=== PATIENT | male | born 1980 | race Caucasian/White ===

== ENCOUNTER 2018-10-02 08:29 | Outpatient (CLI) | payer MEDICAID, SELFPAY | END 2018-10-02 08:49 | PROVIDERS: PCP Neuromusculoskeletal Medicine & OMM; Visit Provider Orthopaedic Surgery | DX: Z01.818 Encounter for other preprocedural examination (principal) ==

== ENCOUNTER 2018-10-07 12:54 | Day surgery (SDC) | payer MEDICAID, SELFPAY ==
[2018-10-07] VITALS (7 sets, daily range): BP systolic 117–158; BP diastolic 63–97; PULSE 62–88; RESP 12–16; TEMP 35.7–37.1; O2SAT 93–97
[2018-10-07] MEDS: Lactated Ringers 1,000 ML 80 ML IV (14:12)
[2018-10-07] MEDS: ceFAZolin 2 GM/50 ML BAG IVPB (15:24)
--- NOTE | 2018-10-07 16:31 | W.PM.DSUDISC ---
Discharge Plan Disposition Patient Disposition: HOME Condition: Good Discharge Details Reason For Visit: Arthroscopy L knee Attending Provider: Cornell Santana Primary Care Provider: Melvin Rivas [place] Meds and New Rx's Prescriptions: New oxycodone-acetaminophen 5-325 mg tablet 1 tab PO Q4H PRN (Reason: pain) Qty: 14 RF: 0 Continued aspirin 81 mg tablet,delayed release (DR/EC) 81 mg PO DAILY RF: 0 prednisone 5 mg tablet 5 mg PO DAILY RF: 0 albuterol sulfate 8.5 GM HFA aerosol inhaler 2 inh Inhalation Q4H PRN PRNRF: 0 ibuprofen 800 MG tablet 800 mg PO TID Qty: 30 RF: 0 multivitamin Tablet,Chewable 1 tab PO DAILY RF: 0 sildenafil (antihypertensive) 20 mg Tablet 10 mg PO DAILY RF: 0 Discharge Instructions Additional Instructions: Elevate L leg when sitting. Apply cryocuff to L knee continuously overnite tonite. Tomorrow, start to use 4 times/day for 1 hour each time. Keep dressings dry and in place for 48 hours. After 48 hours, you can remove the dressings and shower and get incisions wet. Leave incisions uncovered when they are dry and sealed. Outpatient physical therapy on Fri or Mon for L knee rehab post-arthroscopy/patellar chondroplasty. Follow up with in 2 weeks. Take ibuprofen 800 mg, 3 times/day for next 2 weeks to decrease inflammation and pain in L knee. Take oxycodone for breakthru pain,if needed. Referrals: Cornell Santana MD [ [facility] STAFF PHYSICIAN] - (f/u in 2 weeks.) Equipment/Supplies: Partial Weight Bearing Crutches Activity:: Activity as Tolerated Remove Dressings/Wound Care:: 48 hours Shower/Bathe:: 48 hours Diet:: As Tolerated Discharge Orders Discharge Orders: Discharge Order (Routine); Ordered 10/07/18 Ordered By: Cornell Santana DS: Diagnosis Discharge Diagnosis (1) Torn ACL (anterior cruciate ligament): Status: Acute
[2018-10-07] MEDS: fentaNYL 100 MCG/2 ML VIAL IVP ×2 (17:15→17:20)
[2018-10-07] MEDS: oxyCODONE 5 mg/Acetaminophen 325 mg TAB 1 TAB PO (17:42)
--- NOTE | 2018-10-09 16:39 | ROE_ITS ---
DATE OF PROCEDURE: October 07, 2018 PREOPERATIVE DIAGNOSIS: Internal derangement, left knee. 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 PROCEDURE: Arthroscopy of the left knee with limited chondroplasty of the patella. ANESTHESIA: General. SURGEON: Cornell Santana M.D. INDICATIONS: This is a 37-year-old white male who gives a several year history of recurrent episodes of swelling and pseudo giving way of his left knee. He had had a previous arthroscopy with partial meniscectomy many, many years ago. He had done relatively well until three years ago. He has had no true giving way of his knee. He feels like it is getting worse and therefore arthroscopy was recomm ended to provide an accurate diagnosis as the basis for further treatment. The risks and complicatio ns of the procedure were explained to the patient in detail preoperatively. PROCEDURE: The patient was taken to the Operating Room on 10/07/18. He was placed supine on the oper ating table and a general anesthetic was administered. The left thigh was placed in the arthroscopic leg-cruz and the left knee was prepped and draped free in the usual sterile fashion. Arthroscopic portals were established. The left knee was inflated with normal saline solution using the [employer] opy pump and then routine arthroscopic examination proceeded. I utilized the previous arthroscopic p ortals for the procedure. Intraoperative photographs were obtained to document findings. Upon entering the medial compartment, he was found to have had a previous meniscectomy. The anterior one-third to one-half of the medial meniscus was intact. The posterior rim of the medial meniscus w as stable to probing under direct vision. 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 The medial femoral condyle looked normal. The intercondylar notch showed a previous old, chronic tear of the ACL. The PCL was intact. There w as some narrowing of the intercondylar notch due to the development of hypertrophic spurs. The later al compartment showed a normal lateral meniscus. The lateral meniscus was stable to probing under di rect vision. The articular surfaces in the lateral compartment were all preserved. The suprapatellar pouch was clear. Medial and lateral gutters were clear. The patella was tracking well, but the patient had evidence of Grade 2 chondromalacia involving a middle facet and medial face t of the patella. The trochlea articular cartilage was spared. Using the 90 degree high radio freq uency electrocautery wand, a limited chondroplasty was performed, excising all the loose articular ca rtilage from the undersurface of the patella. I then used the high radio frequency electrocautery wa nd around the margins of the patella to denervate the patella and hopefully decrease some of his post op pain. A limited synovectomy was then performed using the high radio frequency electrocautery wand to excise any hypertrophic synovium. At this point the knee was copiously irrigated with saline yissel ution using the arthroscopy pump until the outflow was clear. I then injected into the knee 20 cc's of 0.5% Marcaine with an epinephrine solution along with 4 mg of morphine. I infiltrated the arthros copy portals with 0.5% Marcaine with an epinephrine solution and then approximated the skin edges wit h interrupted #4-0 Nylon sutures. The wounds were dressed with Xeroform gauze, sterile gauze 4x4's, ABD pad and wrapped with 6-inch Elliot bandages for a light pressure dressing. The patient tolerated the procedure well, his anesthesia was reversed without complication and blood loss was minimal. He was discharged to the recovery room in good condition. The patient was discharged home from the Day Surgery Unit when fully recovered from his general anest hesia. He was given instructions to use crutches to walk, weightbearing as tolerated to the left leg . He is instructed to try to elevate his left knee on 1 to 2 pillows as much as possible for the nex t 48 hours postop. He may remove his dressings, shower and get his incisions wet after 48 hours. He can leave the incisions uncovered when they are dry and sealed. He is to use a Cryo Cuff to the lef t knee four times a day for an hour each time. He was given a prescription for inflammation of ibupr ofen 800 mg p.o. t.i.d. for ten days. He was given a prescription for pain of Oxycodone with APAP 5/ 325, one tablet every six hours, if needed. He will begin outpatient physical therapy on either , 10/09/18 or 10/21/18 for rehab of his left knee post-arthroscopic chondroplasty. He will f ollow-up in my office in two weeks.
== END 2018-10-07 18:27 | disposition home or self-care (01) ==
PROVIDERS: PCP Neuromusculoskeletal Medicine & OMM; Visit Provider Orthopaedic Surgery
PROC: (CPT 29870; principal; 2018-10-07 15:00)
DX: S83.512A Sprain of anterior cruciate ligament of left knee, initial encounter (principal); X58.XXXA Exposure to other specified factors, initial encounter; M22.42 Chondromalacia patellae, left knee; M17.12 Unilateral primary osteoarthritis, left knee
CPT/HCPCS: 29877; E0114; J0690; J1100; J1885; J2250; J2310; J2405; J3010

== ENCOUNTER 2020-10-12 01:46 | Outpatient (CLI) | payer MEDICAID, SELFPAY ==
--- NOTE | 2020-10-12 13:15 | DI.MRI_ITS ---
Exam(s) MR UPPER JOINT LT WO EXAM: MR UPPER JOINT LT WO CLINICAL HISTORY: LT SHOULDER PAIN, M25.512 TECHNIQUE: Multiplanar multisequence MRI of the shoulder was performed. COMPARISON: CR RIGHT SHOULDER COMPLETE from 02/19/2011 CR RIGHT SHOULDER COMPLETE from 01/01/2012 CR ABDOMEN FLAT PLATE from 07/12/2013 FINDINGS: MARROW:There is no evidence of fracture, Hill-Sachs deformity, nor ominous osseous lesions. ROTATOR CUFF MECHANISM: AC JOINT/ACROMIUM: There mild degenerative changes acromioclavicular joint. No prominent downgoing o steophytes. Mild impingement upon the supraspinatus noted. There is no evidence of os acromiale. Supraspinatus: There is a small focus of signal abnormality in the foot pad insertion just above the greater tuberosity consistent with partial thickness tearing. There is no full-thickness tear. No f luid in the overlying subacromial bursa and no retraction musculotendinous junction. There is no mus betzy atrophy. Infraspinatus: Intact. No evidence of tear nor muscle atrophy. Teres Minor: Intact. No evidence of tear nor muscle atrophy. Subscapularis/anterior cuff: Mild increased signal. No prominent tear, retraction, or muscle atrophy . BICEPS TENDON: Normal position in the intertubercular groove. No evidence of tear. Mild tenosynovitis LABRUM: No labral tear identified. No evidence of paralabral cyst. LABROLIGAMENTOUS/CAPSULAR COMPLEX: There is no evidence of avulsion of the anterior-inferior labrum, capsule, inferior glenohumeral liga ment complex nor disruption of the scapular periosteum to suggest the presence of a Bankart lesion. GLENOHUMERAL JOINT: No joint effusion nor obvious loose intra-articular bodies. No chondral defects. No osteophytes. No degenerative subarticular cysts. No evidence of capsular tear. The inferior gle nohumeral ligament is intact. QUADRILATERAL SPACE: No evidence of mass in the region of the axillary nerve and dorsal circumflex hu meral vessels. Visualized triceps muscle at this level appears unremarkable. IMPRESSION: 1. There is a small focus of signal abnormality in the supraspinatus tendon just above the greater tu berosity which traverses part of the thickness consistent with a small focal partial-thickness tear. There is no full-thickness tear. No retraction musculotendinous junction. No fluid in the subacrom ial bursa. No muscle atrophy. 2. Other muscles of the rotator cuff mechanism appear unremarkable. 3. There are no labral tears. 4. There is small amount of fluid in the biceps tendon sheath. This may indicate an element of mild tenosynovitis. DATA REPOSITORY:
== END 2020-10-12 02:06 ==
PROVIDERS: PCP Neuromusculoskeletal Medicine & OMM; Visit Provider Student in an Organized Health Care Education/Training Program
DX: M25.512 Pain in left shoulder (principal); M75.112 Incomplete rotator cuff tear or rupture of left shoulder, not specified as traumatic
CPT/HCPCS: 73221

== ENCOUNTER 2020-12-11 02:54 | Outpatient (CLI) | payer MEDICAID, SELFPAY ==
[2020-12-11 14:02] LABS: Source Nasal/Nares
[2020-12-12 16:11] LABS: COVID-19 PCR Negative (Negative)
== END 2020-12-11 02:55 | disposition home or self-care (01) ==
LOC: LBO 02:55
PROVIDERS: PCP Neuromusculoskeletal Medicine & OMM; Visit Provider Student in an Organized Health Care Education/Training Program
DX: Z20.822 Contact with and (suspected) exposure to COVID-19 (principal); Z01.818 Encounter for other preprocedural examination
CPT/HCPCS: 87635

== ENCOUNTER 2020-12-13 08:09 | Day surgery (SDC) | payer MEDICAID, SELFPAY ==
[2020-12-13] VITALS (10 sets, daily range): BP systolic 94–131; BP diastolic 49–89; PULSE 61–76; RESP 12–18; TEMP 36.4–37; O2SAT 94–98; BMI 27.6
--- NOTE | 2020-12-13 07:46 | PDOC.DSDIS_ITS ---
Discharge Plan Disposition Patient Disposition: HOME Condition: Good Discharge Details Reason For Visit: Left SLAP tear; rotator cuff tendonitis; AC DJD Attending Provider: Dewayne Stanton Primary Care Provider: Melvin Rivas [place] Meds and New Rx's Prescriptions: New acetaminophen 500 mg tablet 500 mg PO Q6H PRN (Reason: pain) Qty: 60 RF: 2 ibuprofen 600 mg tablet 600 mg PO TID PRN (Reason: pain) Qty: 60 RF: 0 oxycodone 5 mg tablet 5 mg PO Q4H PRN (Reason: severe post-operative pain) Qty: 18 RF: 0 Continued aspirin 81 mg tablet,delayed release (DR/EC) 81 mg PO DAILY RF: 0 chlorthalidone 25 mg tablet 25 mg PO DAILY RF: 0 albuterol sulfate 8.5 GM HFA aerosol inhaler 2 inh Inhalation Q4H PRN PRNRF: 0 multivitamin Tablet,Chewable 1 tab PO DAILY RF: 0 sildenafil (pulm.hypertension) 20 mg Tablet 10 mg PO DAILY RF: 0 Discontinued ibuprofen 800 MG tablet 800 mg PO TID Qty: 30 RF: 0 Discharge Instructions Stand Alone Forms: Romy Lerma w/BT Referrals: Dewayne Stanton MD [ [facility] STAFF PHYSICIAN] - Equipment/Supplies: Sling Remove Dressings/Wound Care:: Do Not Remove Shower/Bathe:: Cover Diet:: As Tolerated Discharge Orders Discharge Orders: Discharge Order (Routine); Ordered 12/13/20 Ordered By: Kiara James DS: Diagnosis Discharge Diagnosis (1) Superior labrum omsavwfe-aa-quogzppnn (SLAP) tear of left shoulder: Status: Acute (2) Tendinitis of left rotator cuff: Status: Acute (3) Arthritis of left acromioclavicular joint: Status: Acute
[2020-12-13] MEDS: Lactated Ringers 1,000 ML 80 ML IV (08:52)
[2020-12-13] MEDS: CLINDAMYCIN 900 MG/50 ML BAG 50 MG IVPB (09:00)
--- NOTE | 2020-12-13 09:32 | W.ANESPRE ---
General Info Date of Service Date Performed: 12/13/20 Height: 5 ft 7 in Weight: 80 kg Body Mass Index (BMI): 27.6 Surgical Procedure: Operation Date: 12/13/20 10:25 Proposed Procedures Side Surgeon p Shoulder Arthroscopy, EXC DISTAL CLAVICLE Left Dewayne Stanton MD s Shoulder Bicep Tenodesis Left Dewayne Stanton MD Meds Allergies and Home Medications Allergies Allergy/AdvReac Type Severity Reaction Status Date / Time Penicillins Allergy Severe Anaphylaxsi Unverified 12/13/20 08:33 s Home Medication Medication Instructions Recorded albuterol sulfate 2 inh INHALATION Q4H PRN PRN 09/01/14 aspirin 81 mg tablet,delayed 81 mg PO DAILY 09/30/18 release multivitamin 1 tab PO DAILY 10/02/18 sildenafil (pulm.hypertension) 10 mg PO DAILY 10/02/18 chlorthalidone 25 mg tablet 25 mg PO DAILY 09/21/20 acetaminophen 500 mg PO Q6H PRN #60 tab 12/13/20 ibuprofen 600 mg PO TID PRN #60 tab 12/13/20 oxycodone 5 mg PO Q4H PRN #18 tab 12/13/20 Current Visit Medications: Current Medications Generic Name Dose Route Start Last Admin Trade Name Freq PRN Reason Stop Dose Admin Acetaminophen 650 mg 12/13/20 07:45 Acetaminophen 325 Mg Tab PO Q4H PRN PRN Ringer's Solution 1,000 mls @ 80 mls/hr 12/13/20 06:00 12/13/20 08:52 IV 01/11/21 23:59 80 mls/hr INFUSION GENNY Administration Clindamycin Phosphate/Dextrose 900 mg in 50 mls @ 50 mls/hr 12/13/20 06:00 12/13/20 09:00 Cleocin In D5w IVPB 12/13/20 23:59 50 mls/hr PREOP GENNY Administration IV Miscellaneous Supplies 1 each 12/13/20 06:00 Iv Access IV 01/11/21 23:59 DIRECTED GENNY Oxycodone HCl 5 mg 12/13/20 07:45 Oxycodone 5 Mg Tab PO Q3H PRN PRN Pain Sodium Chloride 0 ml 12/13/20 06:00 Normal Saline Flush 10 Ml Syr IV 01/11/21 23:59 PRN PRN Sodium Chloride 0 ml 12/13/20 06:00 Normal Saline 10 Ml Vial IJ 01/11/21 23:59 DIRECTED PRN Sterile Water 0 ml 12/13/20 06:00 Water,Injection,Sterile 10 Ml Vial IJ 01/11/21 23:59 DIRECTED PRN PFSH Active Problems Active Problems: Problem Status Onset Code Torn ACL (anterior cruciate ligament) S83.519A Arthritis of left acromioclavicular joint M19.012 Tendinitis of left rotator cuff M75.82 Superior labrum bwlmpzjm-yg-fdrydkrez (SLAP) tear of left shoulder S43.432A Medical History Medical History Asthma Burger-Grutz disease Contact with and (suspected) exposure to covid-19 Verified with patient that he did NOT have any contact with a suspected COVID -19 person, this was also confirmed by the office as well. Surgical History Surgical History H/O vasectomy History of removal of retained hardware L knee History of repair of ACL L knee History of shoulder surgery rt shoulder Tobacco Smoking/Tobacco Use Status: Current every day Tobacco Type: smokeless tobacco Substance Use Substance use: Never Substance use type: does not use Vital Signs and Lab Results Vital Signs Most Recent Vital Signs in EMR: Most Recent Vital Signs Temp Pulse Resp BP Pulse Ox 37.0 C 76 16 126/77 97 12/13/20 08:27 12/13/20 08:27 12/13/20 08:27 12/13/20 08:27 12/13/20 08:27 Lab Results Blood Type / Crossmatch: No Data to Display Complete Blood Count: No Data to Display Complete Metabolic Panel: No Data to Display Liver Function Panel: No Data to Display Coagulation Panel: No Data to Display Cardiac Panel: No Data to Display Arterial Blood Gas: No Data to Display Venous Blood Gas: No Data to Display Pancreas Panel: No Data to Display Thyroid Panel: No Data to Display Infectious Disease: Coronavirus (COVID-19)(PCR) Negative (Negative) 12/11/20 13:38 12/11/20 Coronavirus 2019 Source Nasal/Nares 12/11/20 13:38 12/11/20 Blood Cultures: No Data to Display Toxicology Panel: No Data to Display Anesthesia Assessment and Plan Anesthesia History Personal History: No History of Anesthesia Complications Family History: No Family History of Anesthesia Complications Exercise Tolerance Exercise Tolerance: Metabolic Equivalents>4 Pertinent Negatives Pertinent Negatives: No Symptoms of GERD, No Major Cardiovascular Symptoms or Complaints, No History of CVA/TIA and Other (Hx DVT, daily aspirin 81mg. Moderate to severe asthma. Albuterol TID) Cardiac & Pulmonary Exam Cardiac Exam: Normal S1/S2 Heart Sounds Pulmonary Exam: Clear Bilateral Breath Sounds Airway Exam Known Difficult Airway: No Mallampati Class: 1 Mouth Opening: Normal (> 3cm) Thyromental Distance: Greater than 3 cm Neck Range of Motion: Full ROM Neck Circumference: Normal Teeth Condition: Normal Dentition ASA Classification ASA Score: ASA 3 Emergency Case?: No NPO Status NPO Status: NPO Clears >2 hours, Solids >8 hours Anesthesia Plan Resuscitation Status: Full Code Anesthesia Technique: General Anesthesia Airway Planned: Endotracheal Tube Monitors Used: Standard Monitors
--- NOTE | 2020-12-13 10:52 | W.PM.PROGNOT ---
Date of Service Date of service: 12/13/20 Time of Service: 10:53 Assessment and Plan Assessment and plan (1) Tendinitis of left rotator cuff: Status: Acute (2) Superior labrum zlndtqjn-xy-biovegqlp (SLAP) tear of left shoulder: Status: Acute (3) Arthritis of left acromioclavicular joint: Status: Acute Assessment and plan: Marlee presented today for his left shoulder surgery. Despite discussing the surgical plan and anesthetic plan in the office as well as on the morning of surgery he is now declined the nerve blockade to the left arm despite multiple attempts at accommodating his concerns and anxieties. He also reported to staff that he would not wear the sling although this was part of the recovery process. Additionally, he request that we go ahead and start with 10 mg oxycodone tablets which I declined. I will provide a large field block at the time of surgery but pain control could best be performed with the block which he is refusing. Objective Last Vital Signs Temp 37.0 C 12/13/20 08:27 Pulse 76 12/13/20 08:27 Resp 16 12/13/20 08:27 BP 126/77 12/13/20 08:27 Pulse Ox 97 12/13/20 08:27
[2020-12-13] MEDS: Bupivacaine 0.5% Pres-Free 30 ML VIAL (11:54)
[2020-12-13] MEDS: Bupivacaine LIPOSOME/PF 133 MG/10 ML VIAL IJ (11:55)
[2020-12-13] MEDS: EPINEPHrine 30 MG/30 ML VIAL (12:00)
--- NOTE | 2020-12-13 12:35 | ROE_ITS ---
Date of service: 12/13/20 Time of Service: 12:35 Operative Note Operative Note DATE OF PROCEDURE: 12/13/20 PRE-OP DIAGNOSIS: Left AC arthritis, left rotator cuff tendinitis, left subacromial impingement, left the biceps tendinitis POST-OP DIAGNOSIS: same PROCEDURE: - Mini-Open Distal Clavicle Excision - Extensive debridement of anterior and posterior glenohumeral joint and rotator cuff - Sub-pectoral biceps tenodesis - Subacromial Debridement with Acromioplasty SURGEON: Dewayne Stanton HARDWARE TRAINER: Kiara James ANESTHESIA TYPE: General LMA/ETT Refer to Anesthesia Record ESTIMATED BLOOD LOSS: 10 PATHOLOGY: none sent COMPLICATIONS: None Patient was transported to: PACU Patient's condition: stable Indications: I have seen Marlee in clinic for a painful shoulder. Pathology was confirmed based on MRI and exam findings. Nonoperative measures were exhausted but disability and pain persisted. I discussed shoulder arthroscopy and procedures. I reviewed the risks of the procedures to include, but not limited to, bleeding, infection, pain, stiffness, damage to nerves or vessels, recurrence, hardware failure, blood clot. Despite these risks, the patient elected to proceed. Findings: [There were signs of arthrosis of the distal clavicle; a 1cm wedge was resected] A diagnostic arthroscopy was performed with the following findings: Articular Side - Glenohumeral Joint: No significant arthritic changes - Labrum: Fraying and elevation of the biceps anchor off of the superior glenoid - Cuff: Partial fraying of the articular 2 to 3 mm of the supraspinatus tendon - Biceps: Inflammatory changes and some fraying seen at the level of the bic ipital groove as well as its anchor Subacromial Side - Bursal: Some thickened bursitis - Rotator Cuff: Intact rotator cuff -Small anterolateral spur Procedure Description: Marlee was greeted in the preoperative holding area where the correct side was identified and marked. The consent was reviewed with the patient and signed. The history and physical was updated. All questions were answered. He was taken to the operating room. The patient was placed into the supine position on the operating room table. A general anesthetic was administered. Marlee was then positioned in the beach chair position. All bony prominences were well padded. The head was placed in a foam heading matcher and assembler in a neutral position. Prophylactic antibiotics in the form of cefazolin were administered. The left arm/shoulder was then prepped with Chloraprep and draped in a standard fashion with stockinette and shoulder drape. A timeout to confirm correct identity, side and site, procedure, allergies, anesthesia, and medical concerns was performed. The arm was placed into a pneumatic cruz, [id number]. The distal clavicle was approached through a 2.5 centimeter incision within Tran's lines. This was made overlying the AC joint. The skin was incised sharply. The deeper tissues dissected with electrocautery. The clavipectoral fascia was identified and incised longitudinally off of the distal clavicle and onto the acromion. This was reflected subperiosteally to expose the distal clavicle and the AC joint. With adequate exposure a 1 cm bony resection was made using an oscillating saw. This is angled posteriorly to avoid any posterior impingement. Once it was fully resected, it was inspected to make sure it is of adequate width. A rasp was used to smooth the bony edges inferiorly and posteriorly primarily. A small amount of bone wax was placed on the end of the distal clavicle. The wound was thoroughly irrigated. There is no active bleeding. The clavipectoral fascia was then closed with a 0 Vicryl in a watertight fashion. The subcutaneous tissues were then reapproximated with a 2-0 Vicryl. The shoulder arthroscopy was then performed. The glenohumeral joint was injected with 20 cc of normal saline with good flow back. A standard posterior portal was made and the joint was entered atraumatically with a blunt arthroscope. Once inside we had good visualization of the structures of the glenohumeral joint. An anterior portal was established with spinal needle localization. A 6.5 mm cannula was inserted. A probe was then used to perform a diagnostic arthroscopy. There is noted to be no significant cartilage damage of the glenoid humeral joint. The labrum was intact anteriorly and posteriorly except that the biceps anchor which had some fraying and elevation of the labrum off of the supraglenoid. There were no loose bodies in the inferior pouch. The superior rotator cuff was attached to the tuberosity but there was some fraying of the articular side of the supraspinatus, involving approximate 2 to 3 mm. The biceps tendon was without tearing but there was some inflammatory changes and fraying seen at the level of the bicipital groove. The subscapularis was intact with some minimal insertional fraying. I then performed a biceps tenotomy with electrocautery. The biceps was seen to retract into the bicipital groove. I contoured the labrum from anterior to posterior. Using a shaver, I debrided some of the inflammatory changes seen on the underside of the rotator cuff. From the anterior portal, I also debrided down the articular sided fraying of the supraspinatus until there is healthy tissue seen. Once again, this involved 2 to 3 mm with very little exposed footprint. The biceps tenodesis was then performed. With the arm and some slight external rotation abduction pectoralis major tendon was identified. A 2 cm incision was made overlying the insertion to the humerus. Sharp dissection was carried onto the skin. Blunt dissection was carried down to the fascia the biceps musculature. This was entered with a tenotomy scissors. The biceps groove was palpable and the biceps tendon was palpable. It was withdrawn from the wound using Allis clamp and finger dissection. Once the biceps tendon was out of the arm the biceps groove was prepared using a rasp. A Mitek Lupine anchor was inserted into the biceps groove at the level of the pectoralis major insertion. This was tested to make sure had excellent fixation into the bone. Using a free needle I then placed a locking Krak?w stitch and each side of the biceps tendon using one limb from each suture at the level of the muscular tendinous junction and moving proximally. Excess tendon was then cut. Using the free suture limb I then shuttled the tendon down to the prepared surface of the humerus. It laid flat against the humerus. It was at the level of the pectoralis major tendon. The suture limbs were then tied. The wound was irrigated. The subcutaneous tissue was reapproximated with a 2-0 Vicryl. The arthroscope was then inserted into the subacromial space. The 6.5 mm cannula was placed lateral to the CA ligament. Given that there was no significant tearing of the rotator cuff I went ahead and released portion of the CA ligament off the anterolateral corner of the acromion to expose the small anterolateral spur. A complete bursectomy is performed anteriorly, posteriorly, and laterally with electrocautery and shaver. This had excellent exposure of the rotator cuff. The bursal side rotator cuff was without any significant tearing that was appreciated. There was small anterolateral spur. Using a spinal needle a lateral portal was established. This became the viewing portal. A 5.0 mm aditya was then inserted from the posterior portal. The anterolateral corner of the acromion was then resected in plane with the posterior slope of the acromion. The scope equipment was removed from the shoulder. Excess fluid was evacuated. The portal sites were closed with 3-0 Monocryl. The wounds were dressed with Steri-Strips, 4 x 4's, ABDs, Medipore tape. A sling was applied. I injected all the surgical sites with a mixture of 30 cc of 0.25% bupivacaine along with 10 cc of Exparel. The patient tolerated the procedure well and was returned to the PACU in a stable condition suffering no known complication.
--- NOTE | 2020-12-13 13:40 | W.ANESPOSTOP ---
Postoperative Evaluation Date, Time and Location Date Performed: 12/13/20 Time Performed: 13:40 Patient Location: PACU Vital Signs Most Recent Imported Vital Signs: Most Recent Vital Signs Temp Pulse Resp BP Pulse Ox 36.5 C 64 13 126/72 96 12/13/20 13:34 12/13/20 13:34 12/13/20 13:34 12/13/20 13:34 12/13/20 13:34 Pain Score Most Recent Pain Score: Most Recent Pain Score Pain Level 0 12/13/20 13:34 Assessment Mental Status: Awake (Alert & Oriented to Patient Baseline) Airway and Respiratory Function: Patent airway with normal (patient baseline) respiratory exam Cardiovascular Function: Hemodynamically Stable Hydration Status: Adequately Hydrated Nausea & Vomiting: No Nausea or Vomiting Pain: Pt. Denies Any Pain Peripheral Nerve Block: Patient did not receive a nerve block
== END 2020-12-13 14:44 | disposition home or self-care (01) ==
LOC: SUR 08:09
PROVIDERS: PCP Neuromusculoskeletal Medicine & OMM; Visit Provider Student in an Organized Health Care Education/Training Program
PROC: (CPT 29805; principal; 2020-12-13 10:15)
PROC: (CPT 23430; 2020-12-13 10:15)
DX: M19.012 Primary osteoarthritis, left shoulder (principal); M75.42 Impingement syndrome of left shoulder; M75.22 Bicipital tendinitis, left shoulder; M75.102 Unspecified rotator cuff tear or rupture of left shoulder, not specified as traumatic
CPT/HCPCS: 23120; 29828; 29823; 29826; J1885; J2250; J2370; J2405; J2704